=== PATIENT | female | born 1950 | race Caucasian/White ===

== ENCOUNTER 2016-04-07 10:25 | Emergency (ER) | payer OTHER ==
[2016-04-07 10:37] VITALS: TEMP 98.5
[2016-04-07] MEDS ORDERED: dilTIAZem HCL 50 MG/10 ML - 10 ML VIAL IVPUSH ONE (11:16)
--- NOTE | 2016-04-07 11:17 | PDOC ---
[id number] FAST HEART BEAT & HTN Time Seen by Provider: 04/07/16 10:36 History Source: Patient (PATIENT WALKED IN COMPLAINING OF NEW ONSET OF THIS A.M. OF RAPID FAST RATE WHICH WAS PICKED UP BY THE PHYSICAL THERAPIST WHO DID A HOME VISIT TODAY. PATIENT HAD RIGHT HIP SURGERY 2 WEEKS AGO AT [facility] IN [facility] Exam Limitations: No Limitations - History of Present Illness Timing/Duration: reports: 1-3 hours Severity: Yes: moderate Modifying Factors: improves with: rest Presenting Symptoms: No: fever, red eyes, ear pain, runny nose, trouble breathing, persistent cough, sore throat, painful swallowing, bloody stools, diarrhea, abdominal pain, poor fluid intake, poor solids intake, vomiting, change in mental status, seizure, headache, pain in extremities, skin rash, other Past History - Travel Traveled outside of the country in the last 30 days: No Close contact w/someone who was outside of country & ill: No - Past History Allergies/Adverse Reactions: Allergies No Known Allergies Allergy (Verified 04/07/16 10:38) Home Medications: Ambulatory Orders Aspirin Coated [Ecotrin -] 325 mg PO DAILY 04/07/16 Flaxseed Oil [Flaxseed] 2,000 mg PO DAILY 04/07/16 Pantoprazole Sodium [Protonix] 40 mg PO DAILY 04/07/16 Pitavastatin Calcium [Livalo] 2 mg PO DAILY 04/07/16 - Social History Smoking Status: Current every day smoker Number of Cigarettes Smoked Per Day: 25 Alcohol Use: none Drug Use: none Review of Systems - Review of Systems Able to Perform ROS?: Yes Is the patient limited Romansh proficient: Yes Constitutional: Yes: Symptoms Reported, Malaise HEENTM: No: Symptoms Reported, See HPI, Eye Pain, Blurred Vision, Tearing, Recent change in vision, Double Vision, Cataracts, Ear Pain, Ocular Prothesis, Ear Discharge, Nose Pain, Nose Congestion, Tinnitus, Nose Bleeding, Hearing Loss , Throat Pain, Throat Swelling, Mouth Pain, Dental Problems, Difficulty Swallowing, Mouth Swelling, Other Cardiac (ROS): Yes: See HPI ABD/GI: No: Symptoms Reported, See HPI, Abdominal Distended, Abd. Pain w/ defecation, Blood Streaked Bowels, Constipated, Diarrhea, Difficulty Swallowing , Nausea, Poor Appetite, Poor Fluid Intake, Rectal Bleeding, Vomiting, Indigestion, Abdominal cramping, Tarry Stools, Other Psychiatric: No: Anxiety, Depression, Frequent Crying, Stressors, Sleep Pattern Change, Emotional Problems, Mood Swings, Change in Appetite, Other Endocrine: No: Symptoms Reported, See HPI, Excessive Sweating, Flushing, Intolerance to Cold, Intolerance to Heat, Increased Hunger, Increased Thirst, Increased Urine, Unexplained Weight Gain, Unexplained Weight Loss, Change in Weight, Other All Other Systems: Reviewed and Negative *Physical Exam - Vital Signs Last Vital Signs Temp Pulse Resp BP Pulse Ox 98.5 F 155 H 18 132/74 98 04/07/16 10:33 04/07/16 10:33 04/07/16 10:33 04/07/16 10:33 04/07/16 10:33 - Physical Exam General Appearance: Yes: Nourished, Appropriately Dressed, Obese HEENT: positive: MALI, Normal ENT Inspection Neck: positive: Trachea midline, Normal Thyroid, Supple Respiratory/Chest: positive: Lungs Clear, Normal Breath Sounds Cardiovascular: positive: Tachycardia, Irregularly Irregular ED Treatment Course - LABORATORY CBC & Chemistry Diagram: 04/07/16 11:00 04/07/16 11:00 Medical Decision Making - Critical Care Time Total Critical Care Time (minutes): 30 Critical Care Statement: The care of this patient involved high complexity decision making to prevent further life threatening deterioration of the patient 's condition and/or to evalute & treat vital organ system(s) failure or risk of failure. - Medical Decision Making Being closely monitored, patient received Diltiazem & Digoxin iv as ordered. Feelin comfortable, converted to RSR. Discussed with the gas plant technician present here. 04/12/16 18:59 *DC/Admit/Observation/Transfer Diagnosis at time of Disposition: Paroxysmal atrial fibrillation with rapid ventricular response - Discharge Dispostion Disposition: HOME Condition at time of disposition: Improved Admit: No - Referrals Referrals: Arlette Phillip [Primary Care Provider] - Fili Gross MD [Staff Physician] - - Patient Instructions Printed Discharge Instructions: Tips to Help You Stop Smoking, DI for Atrial Fibrillation Additional Instructions: Void coffee in excess, no smoking. follow up with cardiology consult as directed
[2016-04-07] MEDS ORDERED: dilTIAZem HCL 50 MG/10 ML - 10 ML VIAL ONE (11:28)
[2016-04-07 11:39] LABS: BASOPHIL 0.6 % (0-2.0); MCH 28.6 pg (25.7-33.7); MEAN CELL VOLUME 86.7 fl (80-96); MEAN PLT VOLUME 8.1 fl (7.5-11.1); NEUTROPHILS 71.6 % (42.8-82.8); PLATELET COUNT 314 K/MM3 (134-434); RDW 13.6 % (11.6-15.6); WHITE BLOOD COUNT 13.5 K/mm3 (4.0-10.0)
[2016-04-07 11:45] VITALS: BMI 39.0
[2016-04-07] MEDS ORDERED: DIGOXIN 0.5 MG/2 ML AMPUL IVPUSH ONE (11:50)
[2016-04-07 11:53] LABS: INR 1.04 (0.82-1.09); PROTHROMBIN TIME (PATIENT) 11.3 SEC (10.2-13.0)
[2016-04-07] MEDS ORDERED: DIGOXIN 0.5 MG/2 ML AMPUL ONE (11:53)
[2016-04-07 11:59] LABS: ALBUMIN 3.8 g/dl (3.5-5.0); ALK PHOS 145 U/L (32-92); ANION GAP 10 (8-16); BILIRUBIN,TOTAL 0.3 mg/dl (0.2-1.0); CALCIUM 9.3 mg/dl (8.4-10.2); CO2 26 mmol/L (22-28); CPK(DFH) 47 IU/L (26-140); CREATININE 0.6 mg/dl (0.6-1.3); GLUCOSE,RANDOM 132 mg/dl (74-106); MAGNESIUM 1.8 mg/dL (1.8-2.4); SGOT/AST 19 U/L (10-42); SGPT/ALT 20 U/L (10-40); TOT PROT 6.7 g/dl (6.4-8.3)
[2016-04-07 12:04] LABS: URINE APPEARANCE Clear; URINE BILIRUBIN Negative (NEGATIVE); URINE BLOOD Negative (NEGATIVE); URINE GLUCOSE (UA) Negative (NEGATIVE); URINE KETONE Negative (NEGATIVE); URINE LEUK ESTERASE Negative (NEGATIVE); URINE NITRITE Negative (NEGATIVE); URINE PROTEIN Negative (NEGATIVE); URINE UROBILINOGEN 0.2 E.U/dl (0.2-1.0)
[2016-04-07 12:05] LABS: URINE COLOR YELLOW
[2016-04-07] MEDS ORDERED: dilTIAZem HCL 30 MG TABLET (FP) PO ONE (12:23)
[2016-04-07] MEDS ORDERED: dilTIAZem HCL 30 MG TABLET (FP) ONE (12:23)
[2016-04-07 12:40] LABS: TROPONIN I (DFP) < 0.03 ng/ml (0.03-0.50)
[2016-04-07 12:43] VITALS: BP 120/78
--- NOTE | 2016-04-07 13:56 | EKG ---
Test Reason : Blood Pressure : / mmHG Vent. Rate : 092 BPM Atrial Rate : 092 BPM P-R Int : 184 ms QRS Dur : 074 ms QT Int : 336 ms P-R-T Axes : 067 041 038 degrees QTc Int : 415 ms NORMAL SINUS RHYTHM POSSIBLE LEFT ATRIAL ENLARGEMENT SEPTAL INFARCT , AGE UNDETERMINED WHEN COMPARED WITH ECG OF 07-APR-2016 10:38, SINUS RHYTHM HAS REPLACED ATRIAL FIBRILLATION VENT. RATE HAS DECREASED BY 69 BPM Confirmed by MD NIURKA, CARLOS ([id number]) on 04/07/2016 1:56:23 PM Referred By: MARKO MAYEN Confirmed By:CARLOS BAH MD
--- NOTE | 2016-04-07 13:58 | EKG ---
Test Reason : Blood Pressure : / mmHG Vent. Rate : 161 BPM Atrial Rate : 170 BPM P-R Int : 000 ms QRS Dur : 080 ms QT Int : 276 ms P-R-T Axes : 000 041 007 degrees QTc Int : 451 ms Likely ATRIAL FIBRILLATION WITH RAPID VENTRICULAR RESPONSE NO PREVIOUS ECGS AVAILABLE Confirmed by MD NIURKA, CARLOS ([id number]) on 04/07/2016 1:58:04 PM Referred By: MARKO MAYEN Confirmed By:CARLOS BAH MD
[2016-04-07 14:44] VITALS: PULSE 81
[2016-04-07] MEDS ORDERED: METOPROLOL SUCCINATE 25 MG TAB.SR.24H (FP) PO ONE (15:37)
--- NOTE | 2016-04-07 15:41 | CON.CARD ---
Consult Consult Specialty:: Cardiology Referred by:: ER Dr. Thornton Reason for Consultation:: PAF->SR - History of Present Illness Chief Complaint: Palpitations, light-headedness History of Present Illness: 65 yo female h/o hyperlipidemia, recent right THR presented with palpitations, light-headedness, found to be in rapid afib [id number] with spontaneous conversion to SR after rate-control. She denies associated dyspnea, chest tightness, true syncope, orthopnea, PND, change in exercise capacity or LE edema. - History Source History Provided By: Patient Limitations to Obtaining History: No Limitations - Past Surgical History Past Surgical History: Yes: Joint Replacement - Alcohol/Substance Use Hx Alcohol Use: No - Smoking History Smoking history: Current every day smoker Aproximately how many cigarettes per day: 25 Home Medications - Allergies Allergies/Adverse Reactions: Allergies Allergy/AdvReac Type Severity Reaction Status Date / Time No Known Allergies Allergy Verified 04/07/16 10:38 - Home Medications Home Medications: Ambulatory Orders Aspirin Coated [Ecotrin -] 325 mg PO DAILY 04/07/16 Flaxseed Oil [Flaxseed] 2,000 mg PO DAILY 04/07/16 Pantoprazole Sodium [Protonix] 40 mg PO DAILY 04/07/16 Pitavastatin Calcium [Livalo] 2 mg PO DAILY 04/07/16 Review of Systems - Review of Systems Cardiovascular: reports: Palpitations Neurological: reports: Dizziness Vital Signs: Vital Signs Temperature 98.5 F 04/07/16 11:10 Pulse Rate 81 04/07/16 14:44 Respiratory Rate 21 04/07/16 12:40 Blood Pressure 120/78 04/07/16 12:40 O2 Sat by Pulse Oximetry (%) 97 04/07/16 14:44 Constitutional: Yes: No Distress, Calm Neck: Yes: Supple Respiratory: Yes: Regular, CTA Bilaterally Gastrointestinal: Yes: Normal Bowel Sounds, Soft, Abdomen, Obese Cardiovascular: Yes: Regular Rate and Rhythm JVD: No Carotid Bruit: No Heart Sounds: Yes: S1, S2 Edema: No - Other Data Labs, Other Data: CBC, BMP 04/07/16 11:00 04/07/16 11:00 INR, PTT INR 1.04 (0.82-1.09) 04/07/16 11:00 Troponin, BNP 04/07/16 11:00 Troponin I < 0.03 L Troponin, BNP 04/07/16 11:00 Troponin I < 0.03 L Afib @ 161 -> NSR @ 92 Imaging - Results Chest X-ray: Report Reviewed (NAD) Cat Scan: Report Reviewed (Chest CTA: Neg PE) Problem List - Problems (1) Paroxysmal atrial fibrillation with rapid ventricular response Code(s): I48.0 - PAROXYSMAL ATRIAL FIBRILLATION (2) Palpitations Code(s): R00.2 - PALPITATIONS (3) History of total right hip replacement Code(s): Z96.641 - PRESENCE OF RIGHT ARTIFICIAL HIP JOINT (4) Hyperlipidemia Code(s): E78.5 - HYPERLIPIDEMIA, UNSPECIFIED Qualifiers: Hyperlipidemia type: pure hypercholesterolemia Qualified Code(s): E78.0 - Pure hypercholesterolemia Assessment/Plan 04/07/2016 Echo: Normal LV size and fxn, tr MR, TR, borderline VIJI 1. PAF->SR [id number] (age>65 and female gender), ruled out post-op PE 2. Recent post right THR 3. Hyperlipidemia P:1. Continue ASA 325 qd, Livalo 2 qd, start Toprol XL 25 qd, had discussion regarding NOAC given borderline risk score, she prefers to continue antiplatelet agent. 2. May d/c home with f/u in office Wednesday 04/19 3:30 PM, outpatient holter to assess recurrence 3. Thank you for consultative opportunity
== END 2016-04-07 16:30 | disposition home or self-care (01) ==
LOC: FER 10:25
PROC: 3E033GC Introduction of Other Therapeutic Substance into Peripheral Vein, Percutaneous Approach (ICD-10-PCS; principal; 2016-04-07)
DX: I48.0 Paroxysmal atrial fibrillation (principal); F17.210 Nicotine dependence, cigarettes, uncomplicated; Z98.890 Other specified postprocedural states; Z79.82 Long term (current) use of aspirin
CPT/HCPCS: 36415; 71010-TC; 71260-TC; 80053; 81003; 82550; 83735; 84443; 84484; 85025; 85379; 85610; 93005; 93306-TC; 99285-25